=== PATIENT | male | born 2000 | race Caucasian/White ===

== ENCOUNTER → 2021-03-10 | Outpatient (CLI) | payer OTHER ==
[~2021-03-10] MED LIST: APAP W/CODEINE1 TA2 PO; CLARITIN10 MG; KEFLEX500 MG PO
[2021-03-10 09:38] LABS: HEMATOCRIT 42.3 % (42.0-52.0); MCH 30.2 pg (26.0-34.0); MCHC 33.2 g/dL (28.0-37.0); MCV 90.7 fL (80.0-100.0); RBC 4.66 mil/uL (4.50-6.00); WBC 5.6 thou/uL (4.0-11.0)
[2021-03-10 10:35] LABS: ALBUMIN 4.2 g/dL (3.4-5.0); CALCIUM 9.6 mg/dL (8.5-10.1); CREATININE 1.2 mg/dL (0.7-1.3); POTASSIUM 4.5 mmol/L (3.5-5.1); TOTAL BILIRUBIN 0.5 mg/dL (0.2-1.0); TOTAL PROTEIN 7.8 g/dL (6.4-8.2)
== END ==
LOC: LAB 08:38
PROVIDERS: ATTEND Family Medicine
DX: K59.1 Functional diarrhea (principal)

== ENCOUNTER → 2021-03-16 | Outpatient (CLI) | payer OTHER | LOC: CAT 08:52 | PROVIDERS: ATTEND Family Medicine | DX: K59.1 Functional diarrhea (principal) ==

== ENCOUNTER → 2021-04-09 | Outpatient (CLI) | payer OTHER ==
[~2021-04-09] MED LIST changes: +BENTYL 10 MG CA10 MG PO
== END ==
LOC: LAB 09:49
PROVIDERS: ATTEND Student in an Organized Health Care Education/Training Program
DX: Z01.812 Encounter for preprocedural laboratory examination (principal); Z20.822 Contact with and (suspected) exposure to COVID-19

== ENCOUNTER → 2021-04-13 | Outpatient (CLI) | payer OTHER ==
[~2021-04-13] VITALS: Ht 177.8 cm; Wt 93.0 kg
--- NOTE | 2021-04-16 11:07 | PATH ---
[facility] [address] [place] [address] PATHOLOGY RPT PROCEDURE Name: JUAN DIEGO ROBLES Room #: REG JANINA Marie.#: [id number] Admission: 04/13/21 Date of : 89 Discharge: Report #: [id number] Path Case #: [id number] [facility] Accession Number: [id number] . 01 Material submitted: . colon - RANDOM COLON BIOPSIES R/O MICROSCOPIC COLITIS . 01 Clinical history: . COLONOSCOPY ABD PAIN, DIARRHEA SAME- NORMAL . 02 Diagnosis: Large bowel "random colon", biopsy: - Fragments of large bowel mucosa without significant pathologic alteration. - Negative for features of microscopic colitis, active inflammation, granulomatous inflammation, dysplasia and malignancy. (JAISON:cristo; 04/14/2021) [facility] 04/15/2021 1105 Local . 02 Electronically signed: . Elva Casey MD, Pathologist NPI- [id number] . 01 Gross description: . The specimen is received in formalin, labeled "Juan Diego Robles pritesh colon biopsies". Received are 5 segments of pale law tissue ranging in size from 0.2 cm to 0.6 cm in maximum dimensions. The specimen is submitted entirely in cassette A1.([facility]; 04/13/2021) [facility] 04/13/2021 1838 Local . 02 Pathologist provided ICD-10: R10.9 . 02 CPT . [id number] Specimen Comment: A courtesy copy of this report has been sent to [phone], [phone] Specimen Comment: [id number] Specimen Comment: Report sent to / DR GUIDO Specimen Comment: A duplicate report has been generated due to demographic updates. Performed at: [facility] [address] [id number] MD Phillip Kaiser MD Phone: [phone] [place] [address] PATHOLOGY RPT PROCEDURE Name: JUAN DIEGO ROBLES [facility] [id number] Admission: 04/13/21 Date of : [birth year] Discharge: Report #: [id number] Path Case #: [id number] Performed at: 02 [facility] [address] [id number] MD Cedrick Hancock MD Phone: [phone]
== END | disposition home or self-care (01) ==
LOC: GI 09:29
PROVIDERS: ATTEND Internal Medicine Gastroenterology
DX: K52.9 Noninfective gastroenteritis and colitis, unspecified (principal); R10.84 Generalized abdominal pain; R63.4 Abnormal weight loss; J45.909 Unspecified asthma, uncomplicated; Z98.890 Other specified postprocedural states
CPT/HCPCS: 62110; 62900